=== PATIENT | male | born 1940 | race Caucasian/White ===

== ENCOUNTER → 2023-05-20 08:38 | Outpatient (REF) | payer MEDICARE, OTHER, SELFPAY ==
[2023-05-20 10:15] LABS: % Basophils 1.5 % (0-2); % Eosinophils 4.9 % (0-6); % Immature Granulocytes 0.2 % (0-0.5); % Lymphocytes 25.6 % (20.5-51.1); % Neutrophils 56.8 % (42.2-75.2); Absolute Basophils 0.1 10^3/uL (0-0.2); Absolute Eosinophils 0.3 10^3/uL (0-0.7); Absolute Lymphocytes 1.4 10^3/uL (1.2-3.4); Absolute Monocytes 0.6 10^3/uL (0.1-0.6); Blood Urea Nitrogen 25 mg/dl (9-20); Calcium 9.3 mg/dl (8.4-10.2); Carbon Dioxide 29 mmol/L (22-30); Chloride 104 mmol/L (98-107); Glucose 99 mg/dl (70-99); Hematocrit 37.6 % (39.0-52.0); Hemoglobin 12.6 g/dL (13.0-18.0); Mean Corp Hgb Conc. 33.5 g/dL (33.0-37.0); Mean Corpuscular Hgb 31.2 pg (27.0-31.0); Mean Corpuscular Volume 93.1 fL (80.0-94.0); Mean Platelet Volume 9.6 fL (7.4-10.4); Nucleated Red Blood Cells % 0 % (-); Platelet Count 240 10^3/uL (130-400); Potassium 4.5 mmol/L (3.5-5.1); Red Blood Cell Count 4.04 10^6/uL (4.70-6.10); Sodium 139 mmol/L (135-145); White Blood Cell Count 5.3 10^3/uL (4.8-10.8); eGFR > 60.00
[2023-05-22 18:03] LABS: PSA Total 9.3 ng/mL (0.0-4.0)
== END ==
LOC: REG 08:38
PROVIDERS: ATTENDING PHYSICIAN Orthopaedic Surgery; FAMILY PHYSICIAN Internal Medicine
DX: Z01.818 Encounter for other preprocedural examination (principal); R97.20 Elevated prostate specific antigen [PSA]
CPT/HCPCS: 36415; 80048; 84153; 84154; 85025

== ENCOUNTER → 2023-05-31 11:46 | Outpatient (REF) | payer MEDICARE, OTHER, SELFPAY ==
[2023-05-31 12:49] LABS: % Basophils 0.7 % (0-2); % Eosinophils 2.3 % (0-6); % Immature Granulocytes 0.4 % (0-0.5); % Lymphocytes 20.4 % (20.5-51.1); % Monocytes 11.5 % (1.7-9.3); % Neutrophils 64.7 % (42.2-75.2); Absolute Basophils 0.1 10^3/uL (0-0.2); Absolute Eosinophils 0.2 10^3/uL (0-0.7); Absolute Lymphocytes 1.5 10^3/uL (1.2-3.4); Absolute Monocytes 0.9 10^3/uL (0.1-0.6); Absolute Neutrophils 4.9 10^3/uL (1.4-6.5); Hematocrit 39.5 % (39.0-52.0); Hemoglobin 13.2 g/dL (13.0-18.0); Mean Corp Hgb Conc. 33.4 g/dL (33.0-37.0); Mean Corpuscular Hgb 30.6 pg (27.0-31.0); Mean Corpuscular Volume 91.6 fL (80.0-94.0); Mean Platelet Volume 9.8 fL (7.4-10.4); Nucleated Red Blood Cells % 0 % (-); Platelet Count 227 10^3/uL (130-400); Red Blood Cell Count 4.31 10^6/uL (4.70-6.10); Red Cell Dist. Width 13.1 % (11.5-14.5); White Blood Cell Count 7.5 10^3/uL (4.8-10.8)
== END ==
LOC: REG 11:46
PROVIDERS: ATTENDING PHYSICIAN Nurse Practitioner Family; FAMILY PHYSICIAN Internal Medicine
DX: Z01.818 Encounter for other preprocedural examination (principal)
CPT/HCPCS: 36415; 85025

== ENCOUNTER → 2023-08-03 08:36 | Outpatient (REF) | payer MEDICARE, OTHER, SELFPAY ==
[2023-08-05 16:02] LABS: PSA Total 9.5 ng/mL (0.0-4.0)
== END ==
LOC: REG 08:36
PROVIDERS: ATTENDING PHYSICIAN Urology; FAMILY PHYSICIAN Internal Medicine
DX: R97.20 Elevated prostate specific antigen [PSA] (principal)
CPT/HCPCS: 36415; 84153; 84154

== ENCOUNTER → 2023-09-29 12:32 | Outpatient (REF) | payer MEDICARE, OTHER, SELFPAY | LOC: MRI 3T 12:32 | PROVIDERS: ATTENDING PHYSICIAN Urology; FAMILY PHYSICIAN Internal Medicine | DX: R97.20 Elevated prostate specific antigen [PSA] (principal) | CPT/HCPCS: 72197; A9575 ==

== ENCOUNTER → 2023-11-14 13:19 | Outpatient (REF) | payer MEDICARE, OTHER, SELFPAY | LOC: CLAB 13:19 | PROVIDERS: ATTENDING PHYSICIAN Urology | DX: R97.20 Elevated prostate specific antigen [PSA] (principal) | CPT/HCPCS: 88305 ==

== ENCOUNTER → 2024-02-02 18:14 | Outpatient (REF) | payer MEDICARE, OTHER, SELFPAY | LOC: PAVMRI 18:14 | PROVIDERS: ATTENDING PHYSICIAN Family Medicine; FAMILY PHYSICIAN Internal Medicine | DX: M54.16 Radiculopathy, lumbar region (principal) | CPT/HCPCS: 72148 ==

== ENCOUNTER → 2024-02-27 15:01 | Outpatient (REF) | payer MEDICARE, OTHER, SELFPAY | LOC: RCS 15:01 | PROVIDERS: ATTENDING PHYSICIAN Internal Medicine | DX: I34.0 Nonrheumatic mitral (valve) insufficiency (principal) | CPT/HCPCS: 93005; 93306 ==

== ENCOUNTER → 2024-08-08 08:44 | Outpatient (REF) | payer MEDICARE, OTHER, SELFPAY ==
[2024-08-11 01:14] LABS: CA 19-9 13 U/mL (<=35)
== END ==
LOC: REG 08:44
PROVIDERS: ATTENDING PHYSICIAN Internal Medicine
DX: K86.2 Cyst of pancreas (principal); R97.8 Other abnormal tumor markers
CPT/HCPCS: 36415; 86301

== ENCOUNTER 2024-10-11 12:06 | Emergency (ER) | payer MEDICARE, OTHER, SELFPAY ==
[2024-10-11] VITALS (10 sets, daily range): BP systolic 160–212; BP diastolic 80–113; BMI 22.8
[2024-10-11 12:34] LABS: % Eosinophils 2.3 % (0-6); % Immature Granulocytes 0.3 % (0-0.5); % Lymphocytes 22.8 % (20.5-51.1); % Monocytes 9.6 % (1.7-9.3); Absolute Basophils 0.1 10^3/uL (0-0.2); Absolute Eosinophils 0.2 10^3/uL (0-0.7); Absolute Lymphocytes 1.6 10^3/uL (1.2-3.4); Absolute Monocytes 0.7 10^3/uL (0.1-0.6); Absolute Neutrophils 4.5 10^3/uL (1.4-6.5); Hematocrit 42.4 % (39.0-52.0); Hemoglobin 14.4 g/dL (13.0-18.0); Mean Corpuscular Hgb 31.3 pg (27.0-31.0); Mean Corpuscular Volume 92.2 fL (80.0-94.0); Mean Platelet Volume 9.5 fL (7.4-10.4); Nucleated Red Blood Cells % 0 % (-); Platelet Count 206 10^3/uL (130-400); Red Cell Dist. Width 12.8 % (11.5-14.5); White Blood Cell Count 7.1 10^3/uL (4.8-10.8)
[2024-10-11 12:48] LABS: ALT (SGPT) 20 U/L (0-50); AST (SGOT) 27 U/L (17-59); Albumin 4.5 g/dl (3.5-5.0); Alkaline Phosphatase 58 U/L (38-126); Blood Urea Nitrogen 22 mg/dl (9-20); Calcium 9.6 mg/dl (8.4-10.2); Carbon Dioxide 27 mmol/L (22-30); Chloride 107 mmol/L (98-107); Glucose 109 mg/dl (70-99); Potassium 3.7 mmol/L (3.5-5.1); Sodium 142 mmol/L (135-145); Total Bilirubin 0.6 mg/dl (0.2-1.3); Total Protein 6.8 g/dl (6.3-8.2); eGFR > 60.00
[2024-10-11 12:59] LABS: Troponin I < 0.012 ng/ml
[2024-10-11] MEDS: TRANDATE 10 MG IV (15:10)
--- NOTE | 2024-10-11 15:10 | ED.GENMED ---
History of Present Illness
General
Chief Complaint: Blood Pressure Problem
Source: patient and spouse
Exam Limitations: none
Time Seen by Provider: 10/11/24 14:43
Nursing documentation reviewed up to this point in time: agreed with
History of Present Illness
History of Present Illness:
84-year-old male with history of hypertension presents to the ER for evaluation of hypertension. Patient reports that he had been on amlodipine 5 mg daily to treat his blood pressure chronically. He says that he was concerned that it might be
interfering with his sleep and so he decided to try and wean off of it. He says that about 3 weeks ago he weaned down to a half a pill (2.5 mg daily). He says his blood pressures were acceptable and so he ultimately weaned himself off about 10
days ago. He says that since then he had been doing generally well but today he woke up with mild headache and slight fluttering in the chest and when he checked his blood pressure it was severely elevated to over 190 systolic. He says that
typically he can relax and recheck his blood pressure and it will come down but when he rechecked his blood pressure after relaxing it had actually gone up to over 200 and so he came to the ER to be evaluated. He denies any chest pain. He denies
any vision changes. He denies any shortness of breath. He denies any other acute complaints today. He notes that after his blood pressure was noted to be very high today he did take a 5 mg tablet of amlodipine.
Past History
Past History
ED Past Medical History: HTN (Ramapril 5 mg) and Psychiatric (anxiety takes 'a small pill to help with it')
ED Past Surgical History: Orthopedic
Social History
Tobacco: Non-smoker
Alcohol: None
Drug: None
Personal:
Living: with family
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
Review of Systems
Review of Systems
All Other Systems: ROS reviewed and negative except as documented in HPI and ROS
Constitutional: Denies fever
Respiratory: Denies trouble breathing
Cardiac: Reports palpitations; Denies chest pain
ABD/GI: Denies abdominal pain or nausea
: Denies flank pain
Musculoskeletal: Denies neck pain or back pain
Neurological: Denies headache, weakness or numbness
Phy Exam
Physical Exam
Physical Exam:
General: Awake, alert, oriented x3; no acute distress
Head: Normocephalic, atraumatic
Eyes: Conjunctiva normal, pupils equal round reactive to light bilaterally
Throat: Airway intact, handling secretions
Neck: Trachea midline, supple without meningismus
Lungs: Clear to auscultation bilaterally, no wheezing, rales, rhonchi
Heart: Regular rate and rhythm, no murmurs, gallops, or rubs
Abd: Soft, non distended, nontender, no palpable mass
Neuro: Cranial nerves grossly intact, speech fluid, no gross motor or sensory deficits
Extremities: No edema in extremities, equal pulses in all extremities
Scores
Heart Failure Risk
Heart Failure Risk Score: Not Applicable
Heart Score for Chest Pain Patients
STEMI patient?: Not applicable
Withdrawal Assessment of Alcohol
Withdrawal Assessment Completed?: Not applicable
Course
Orders/Labs/Results
Orders:
Orders
10/11/24 12:15
ECG [Electrocardiogram (*1)] Urgent
Reason for Study: Palpitations
EKG- Treatment ONCE
10/11/24 12:24
Complete Blood Count/With Diff Urgent
Comprehensive Metabolic Panel Urgent
Troponin I Urgent
10/11/24 15:05
Labetalol HCl [Trandate] 10 mg IV NOW STA
10/11/24 15:36
Labetalol HCl [Trandate] 10 mg IV NOW STA
Abnormal Lab Results
10/11/24
12:24
RBC 4.60 L 10^6/uL
(4.70-6.10)
MCH 31.3 H pg
(27.0-31.0)
Absolute Monos (auto) 0.7 H 10^3/uL
(0.1-0.6)
Monocytes % 9.6 H %
(1.7-9.3)
BUN 22 H mg/dl
(9-20)
Glucose 109 H mg/dl
(70-99)
10/11/24 12:24
10/11/24 12:24
Vital Signs
Pulse: 62
Blood pressure: 163/80
Initial and Last Documented VS:
Initial Vital Signs
Temp Pulse Resp BP Pulse Ox
36.4 C 91 16 212/113 99
10/11/24 12:12 10/11/24 12:12 10/11/24 12:12 10/11/24 12:12 10/11/24 12:12
Last Documented Vital Signs
Temp Pulse Resp BP Pulse Ox
36.4 C 69 17 184/88 98
10/11/24 12:12 10/11/24 15:30 10/11/24 15:30 10/11/24 15:30 10/11/24 15:35
MDM/Problems Addressed
Differential Diagnosis Includes:
Hypertension
MDM/Problems Addressed:
84-year-old male presents to the emergency room with poorly controlled hypertension after weaning himself off amlodipine. Blood pressure 212/113. Rest of vitals normal. Physical exam as above. He had lab work sent in triage including a CBC and a
CMP which showed no clinically significant abnormalities. Undetectable troponin. He had an EKG because he reported some fluttering in his chest earlier�this was a sinus rhythm with no acute ischemia. Will plan to treat with labetalol for some
better blood pressure control in the short-term. Patient will need to restart his long-term antihypertensives. Reassess after the above.
Blood pressure improved to 163/80. Patient well-appearing, asymptomatic. Advised for him to resume his normal dose of amlodipine 5 mg daily and follow-up with his primary doctor in the office. He feels comfortable with this plan. All questions
answered.
Chronic conditions affecting care:
Hypertension
Acute Exacerbation and/or Progression of Chronic Illness:
Acutely hypertensive treated with meds as above
Acute Exacerbation and/or Progression of Chronic Illness: HTN
*Pulse Oximetry
SaO2: 99
Oxygen Mode of Delivery: Room air
Patient hypoxic: no (99%)
*EKG
Interpreted by ED Provider?: Yes
Heart Rate: 85
Rate: normal
Rhythm: sinus
[place]: left axis deviation
Interval: normal interval
QRS Pattern: left vent hypertrophy
Ischemia: non-specific ST changes
*Critical Care Note
Total Time (30-74mins, 75-104mins- exclusive of procedures): Not Applicable
Data Reviewed
Source: patient and spouse
Patient Management
Discussion with other providers: PCP (I reached out to patient's primary care physician to ensure good follow-up)
ED Attending Note
-
Portions of this chart may have been created with voice recognition software.� Occasional wrong word or��sound alike� substitutions may have occurred due to the inherent limitations of voice recognition software.
Discharge Plan
Departure
Patient Disposition: Home (Routine Discharge)
Date of Disposition: 10/11/24
Time of Disposition: 15:58
Patient with high blood pressure during this ER visit?: Yes
Discharge Problem:
Hypertension
Instructions: High Blood Pressure (DC)
Prescriptions:
No Action
ramipril [Altace] 10 MG capsule
10 mg PO DAILY
escitalopram oxalate 10 MG tablet
10 mg PO DAILY
cholecalciferol (vitamin D3) 1,000 UNITS tablet
500 units PO DAILY
Beta Sitosterol
1 tab PO DAILY
Co Q-10
1 tab PO DAILY
Eucerin Zinc
1 tab PO DAILY
Resveratrol
1 tab PO DAILY
Trijoint
1 tab PO DAILY
Vitamin C:
1,000 mg PO DAILY
l-Lysine
1 tab PO DAILY
Referrals:
Daniel Aviles DO [[facility], Internal Medicine] - Follow up in 1 week
Activity Restrictions/Additional Instructions:
Thank you for visiting the Emergency Department at [facility].
1. Please schedule a follow up appointment as directed. Call first thing tomorrow morning to make an appointment.
2. If indicated, please take your medications as instructed and indicated on discharge paperwork.
3. If any of your symptoms do not improve, or persist, or become more severe within 6-12 hours, please return to the emergency department for further care.
4. Please return to the emergency department if you develop a headache, neck pain/stiffness, fever greater than 100.4F, chest pain, shortness of breath, persistent nausea, vomiting, slurred speech, difficulty walking, numbness/tingling, weakness,
signs of infection or any other symptoms that are worrisome to you.
Please call [phone] if you have any questions.
Interventions
Interventions:
ED- Cardiac Assessment Last Done: 10/11/24 15:35
ED- Neurological Assessment Last Done: 10/11/24 15:35
ED- Pulmonary Assessment Last Done: 10/11/24 15:35
Discharge Date and Time
Print Language: FRENCH
== END 2024-10-11 16:10 | disposition home or self-care (01) ==
LOC: EMR 12:06
PROVIDERS: Emergency Medicine; EMERGENCY PHYSICIAN Emergency Medicine; FAMILY PHYSICIAN Internal Medicine
DX: I10 Essential (primary) hypertension (principal); Z79.899 Other long term (current) drug therapy; F41.9 Anxiety disorder, unspecified
CPT/HCPCS: 99283; 96374; 96375; 80053; 84484; 85025; 93005

== ENCOUNTER → 2024-10-23 09:06 | Outpatient (REF) | payer MEDICARE, OTHER, SELFPAY | LOC: RCS 09:06 | PROVIDERS: ATTENDING PHYSICIAN Internal Medicine | DX: R00.2 Palpitations (principal) | CPT/HCPCS: 93225; 93226 ==

== ENCOUNTER → 2024-11-12 08:48 | Outpatient (REF) | payer MEDICARE, OTHER, SELFPAY ==
[2024-11-12 10:32] LABS: ALT (SGPT) 19 U/L (0-50); AST (SGOT) 25 U/L (17-59); Albumin 4.0 g/dl (3.5-5.0); Alkaline Phosphatase 59 U/L (38-126); Blood Urea Nitrogen 22 mg/dl (9-20); Calcium 9.3 mg/dl (8.4-10.2); Carbon Dioxide 30 mmol/L (22-30); Chloride 107 mmol/L (98-107); Glucose 97 mg/dl (70-99); Potassium 4.6 mmol/L (3.5-5.1); Sodium 140 mmol/L (135-145); Total Protein 6.2 g/dl (6.3-8.2); eGFR > 60.00
[2024-11-12 11:01] LABS: PSA, Total - Diagnostic 6.87 ng/ml (0.0-4.0)
[2024-11-15 10:17] LABS: Aldosterone/Renin Activ Ratio 10.3 ratio (<=25.0); Renin Activity Results 0.8 ng/mL/hr
== END ==
LOC: REG 08:48
PROVIDERS: ATTENDING PHYSICIAN Urology; FAMILY PHYSICIAN Internal Medicine
DX: R97.20 Elevated prostate specific antigen [PSA] (principal); I10 Essential (primary) hypertension
CPT/HCPCS: 36415; 80053; 82088; 84153; 84244

== ENCOUNTER → 2025-01-29 13:08 | Outpatient (REF) | payer MEDICARE, OTHER, SELFPAY | LOC: PAVMRI 13:08 | PROVIDERS: ATTENDING PHYSICIAN Internal Medicine | DX: K86.2 Cyst of pancreas (principal) | CPT/HCPCS: 74181 ==

== ENCOUNTER 2025-03-18 06:14 | Day surgery (SDC) | payer MEDICARE, OTHER, SELFPAY ==
[2025-03-18 13:29] VITALS: BMI 22.9
[2025-03-18 13:30] VITALS: BP 162/80; BMI 22.9
[2025-03-18 16:11] VITALS: BP 115/64
[2025-03-18 16:15] VITALS: BP 114/63
[2025-03-18 16:29] VITALS: BP 128/69
[2025-03-18 16:30] VITALS: BP 136/67
[2025-03-18 16:45] VITALS: BP 140/60
== END 2025-03-18 17:14 | disposition home or self-care (01) ==
LOC: SDS 06:14
PROVIDERS: ATTENDING PHYSICIAN Internal Medicine Gastroenterology
DX: K86.2 Cyst of pancreas (principal); K31.7 Polyp of stomach and duodenum
CPT/HCPCS: 43242; 43251; 88173